=== PATIENT | male | born 1995 ===

== ENCOUNTER 2023-04-02 07:17 | Emergency (ER) | payer SELFPAY ==
[~2023-04-02] VITALS: Ht 182.9 cm; Wt 72.0 kg
[2023-04-02 07:21] VITALS: BP 113/77; PULSE 108; RESP 16; TEMP 97.9; O2SAT 97
== END 2023-04-02 09:17 | disposition left against medical advice (07) ==
LOC: ER 07:17
DX: Z02.89 Encounter for other administrative examinations (principal); Z53.21 Procedure and treatment not carried out due to patient leaving prior to being seen by health care provider
CPT/HCPCS: 99281